=== PATIENT | female | born 1955 | race Caucasian/White ===

== ENCOUNTER → 2017-06-18 | Outpatient (CLI) | payer BC ==
--- NOTE | 2017-06-19 11:09 | RAD ---
DATE: June 18, 2017 EXAM: DIGITAL SCREEN BILAT W/CAD HISTORY: Routine Screening COMPARISON: None TECHNIQUE: Routine digital mammographic views were obtained. This study was interpreted with the benefit of Computerized Aided Detection (CAD). The breast parenchyma shows scattered fibroglandular densities. Breast parenchyma level B. FINDINGS: There is an asymmetric tissue density in the upper outer right breast anteriorly. There is no suspicious microcalcifications or areas of architectural distortion. IMPRESSION: Asymmetric tissue density on the right. Recommend the patient return for a spot cc view and spot MLO view of the right breast. Additional views or ultrasound likely be necessary as well. The patient and the clinical service will be contacted by the radiology staff for further instructions. BI-RADS CATEGORY: 0 INCOMPLETE: NEEDS ADDITIONAL IMAGING EVALUATION AND/OR PRIOR MAMMOGRAMS FOR COMPARISON. Mammography is a sensitive method for finding small breast cancers, but it does not detect them all and is not a substitute for careful clinical examination. A negative mammogram does not negate a clinically suspicious finding and should not result in delay in biopsying a clinically suspicious abnormality. "Our facility is accredited by the [employer] Mammography [employer]."
== END | disposition home or self-care (01) ==
LOC: MAMMO 07:47
PROVIDERS: ATTEND Family Medicine
DX: Z12.31 Encounter for screening mammogram for malignant neoplasm of breast (principal)
CPT/HCPCS: G0202; 77067

== ENCOUNTER → 2017-07-04 | Outpatient (CLI) | payer BC ==
--- NOTE | 2017-07-04 14:47 | RAD ---
DATE: 07/04/2017 EXAM: DIGITAL DIAGNOSTIC RT HISTORY: Asymmetric density in the right breast. COMPARISON: 06/18/2017 This study was interpreted with the benefit of Computerized Aided Detection (CAD). The breast parenchyma shows scattered fibroglandular densities. Breast parenchyma level B. FINDINGS: Two spot compression MLO, a spot compression CC and true lateral digital mammograms of the right breast were obtained. Comparison study is dated 06/18/2017. The area of increased density compresses out on the spot compression images. No mass is seen on the true lateral mammogram. I would recharacterize the patient's mammogram as a BI-RADS Category 1, negative no mammographic evidence malignancy with recommendation for routine yearly screening mammography for follow-up. IMPRESSION: BI-RADS Category 1, negative. There is no mammographic evidence of malignancy. 2 yearly screening mammography is recommended for follow-up. BI-RADS CATEGORY: 1 NEGATIVE RECOMMENDED FOLLOW-UP: 12M 12 MONTH FOLLOW-UP PQRS compliance statement: Patient information was entered into a reminder system with a target due date 06/18/2018 for the next mammogram. Mammography is a sensitive method for finding small breast cancers, but it does not detect them all and is not a substitute for careful clinical examination. A negative mammogram does not negate a clinically suspicious finding and should not result in delay in biopsying a clinically suspicious abnormality. "Our facility is accredited by the [employer] Mammography [employer]."
== END | disposition home or self-care (01) ==
LOC: MAMMO 13:55
PROVIDERS: ATTEND Family Medicine
DX: N64.89 Other specified disorders of breast (principal)
CPT/HCPCS: G0206; 77065